=== PATIENT | female | born 1975 | race American Indian/Alaskan Native ===

== ENCOUNTER 2021-02-06 02:00 | Inpatient (IN) | payer OTHER ==
[~2021-02-06] VITALS: Ht 162.6 cm; Wt 81.7 kg
[2021-02-06 02:56] LABS: Source, Urine Clean Catch
[2021-02-06 02:57] LABS: Blood, Urine 2+ (Neg); Glucose Qualitative, Urine Neg (Neg); Ketones, Urine 2+ (Neg); Leukocyte Esterase, Urine 1+ (Neg); Nitrite, Urine Pos (Neg); Protein, Urine 2+ (Neg); Specific Gravity, Urine 1.025 (1.003-1.022); Urobilinogen, Urine 4+ (Normal)
[2021-02-06 03:04] LABS: BASOPHILS ABSOLUTE AUTO 0.03 K/mm3 (0.00-0.23); BASOPHILS PERCENT AUTO 0 % (0-2); EOSINOPHILS ABSOLUTE AUTO 0.04 K/mm3 (0.00-0.68); EOSINOPHILS PERCENT AUTO 0 % (0-6); Hematocrit 41.4 % (33.0-51.0); Hemoglobin 13.8 g/dL (11.5-16.0); IMMATURE GRAN ABSOLUTE AUTO 0.11 K/mm3 (0.00-0.10); IMMATURE GRAN PERCENT AUTO 1 % (0-1); LYMPHOCYTES PERCENT AUTO 7 % (21-46); MONOCYTES ABSOLUTE AUTO 0.51 K/mm3 (0.16-1.47); MONOCYTES PERCENT AUTO 3 % (4-13); Mean Corpuscular HGB 29.1 pg (26.0-34.0); Mean Corpuscular HGB Conc 33.3 g/dL (31.5-36.5); Mean Corpuscular Volume 87 fL (80-100); NEUTROPHILS ABSOLUTE AUTO 13.07 K/mm3 (1.96-9.15); NEUTROPHILS PERCENT AUTO 88 % (41-73); RDW Standard Deviation 40.7 fL (35.1-46.3); Red Blood Cell Count 4.75 M/mm3 (3.80-5.20); White Blood Cell Count 14.86 K/mm3 (4.00-11.30)
[2021-02-06 03:04] LABS: Appearance, Urine Hazy (Clear); Bilirubin, Urine 2+ (Neg); Color, Urine Amber (P-Yellow)
[2021-02-06 03:05] LABS: Amorphous Heavy (0-Heavy); Bacteria Mod /hpf; Mucus Light (0-Heavy); Squamous Epithelial Cells Few /hpf (Few)
[2021-02-06 03:08] LABS: Platelet Count 306 K/mm3 (150-400)
[2021-02-06 03:15] LABS: Alanine Aminotransfer (ALT/SGP 14 U/L (12-78); Albumin, Blood 3.6 g/dL (3.4-5.0); Albumin/Globulin Ratio 0.8 (0.8-1.8); Alk Phos 129 U/L (50-136); Anion Gap 7 mmol/L (6-16); Aspartate Aminotrans (AST/SGOT 16 U/L (12-37); Bilirubin, Total 0.9 mg/dL (0.1-1.0); Blood Urea Nitrogen 15 mg/dL (8-24); Bun/Creatinine Ratio 20.2 (12.0-20.0); CO2, Blood 22 mmol/L (21-32); Calcium, Blood 8.8 mg/dL (8.5-10.1); Chloride, Blood 105 mmol/L (98-108); Creatinine, Blood 0.74 mg/dL (0.40-1.00); Globulin, Blood 4.8 g/dL (2.2-4.0); Glomerular Filtration Rate >60 (60-); Glucose, Blood 134 mg/dL (70-99); Sodium, Blood 134 mmol/L (136-145); Total Protein, Blood 8.4 g/dL (6.4-8.2)
[2021-02-06 08:55] LABS: SARS-Cov-2 (COVID-19) PCR, MMC NEGATIVE (NEGATIVE)
--- NOTE | 2021-02-06 08:56 | NUR ---
THE PATIENT WAS BROUGHT TO DAY SURGERY FROM THE [facility] FOR HER PROCEDURE. History, Chart, Medications and Allergies reviewed before start of procedure.Lungs clear T/O to Auscultation. Pre-Op teaching done. Pt verbalizes understanding.
--- NOTE | 2021-02-06 19:18 | NUR ---
SHIFT SUMMARY PATIENT NEW ADMIT TO UNIT POST OP COLECTOMY WITH NO OSTOMY. MIDLINE ABD INCISION WITH GUERRERO WITH SMALL AREA OF SS DRAINAGE ON DRESSING. CARRASCO PATENT AND DRAINING. IV FLUIDS AND DILAUDID TUBE WASHER RUNNING. PATIENT SLOW TO RESPOND TO QUESTIONS. ANXIOUS AND PAINFUL WHEN AWAKE. RESTLESS IN BED. NPO AT THIS TIME. REPORT GIVEN TO MACHINE OPERATORS RN.
[2021-02-07 05:07] LABS: BASOPHILS ABSOLUTE AUTO 0.02 K/mm3 (0.00-0.23); BASOPHILS PERCENT AUTO 0 % (0-2); EOSINOPHILS PERCENT AUTO 0 % (0-6); Hematocrit 32.4 % (33.0-51.0); Hemoglobin 10.7 g/dL (11.5-16.0); IMMATURE GRAN ABSOLUTE AUTO 0.08 K/mm3 (0.00-0.10); IMMATURE GRAN PERCENT AUTO 0 % (0-1); LYMPHOCYTES ABSOLUTE AUTO 1.21 K/mm3 (0.84-5.20); LYMPHOCYTES PERCENT AUTO 6 % (21-46); MONOCYTES ABSOLUTE AUTO 0.45 K/mm3 (0.16-1.47); MONOCYTES PERCENT AUTO 2 % (4-13); Mean Corpuscular HGB 28.5 pg (26.0-34.0); Mean Corpuscular Volume 86 fL (80-100); Mean Platelet Volume 11.5 fL (9.1-12.4); NEUTROPHILS ABSOLUTE AUTO 17.24 K/mm3 (1.96-9.15); NEUTROPHILS PERCENT AUTO 91 % (41-73); Platelet Count 283 K/mm3 (150-400); RDW Coefficient Variation 13.2 % (11.7-14.2); RDW Standard Deviation 40.9 fL (35.1-46.3); Red Blood Cell Count 3.75 M/mm3 (3.80-5.20)
[2021-02-07 05:30] LABS: Anion Gap 6 mmol/L (6-16); Blood Urea Nitrogen 15 mg/dL (8-24); CO2, Blood 26 mmol/L (21-32); Calcium, Blood 7.7 mg/dL (8.5-10.1); Chloride, Blood 103 mmol/L (98-108); Creatinine, Blood 0.83 mg/dL (0.40-1.00); Glomerular Filtration Rate >60 (60-); Glucose, Blood 136 mg/dL (70-99); Potassium, Blood 3.4 mmol/L (3.5-5.5); Sodium, Blood 135 mmol/L (136-145)
--- NOTE | 2021-02-07 05:39 | NUR ---
SHIFT SUMMARY POD1 SIGMOID COLECTOMY W/O OSTOMY WITH MIDLINE INSCISION AND GUERRERO DRESSING, MOD SS DRAINAGE. PT HAS CONSITENTLY PRESSING HER ASSISTANT NEWS DIRECTOR PUMP, MULTIPLE TIMES T/O SHIFT. SHE WAS DIAPHORETIC INTERMITTENTLY AND RESTLESS. PT ALSO STS "I'M IN PAIN, CAN YOU GIVE ME HEROIN?" I EXPLAINED THAT SHE HAS HER ASSISTANT NEWS DIRECTOR PUMP WITH DILAUDID WHICH WOULD HELP HER WITH PAIN. PT HAS CARRASCO, INTACT, PATENT AND DRAINING. PT VOIDING ADEQUATELY BUT HAS A TEA COLOR URINE. LR INFUSING, ABX HAS BEEN ALSO ADMINISTERED ON HER CENTRAL LINE/FEMORAL. PT ALSO REFUSED TO HAVE THE RIBBON TIER TAKE HER VITALS LAST NIGHT. SHE STATES "THAT'S IS PAINFUL" PERTAINING TO THE BLOOD PRESSURE CUFF. PT WOULD ALSO INTERMITTENTLY SCREAM FOR HELP AND WHEN ASKED, SHE WOULD STATE THAT SHE IS PAINFUL. PT IS NPO, OK FOR SOME ICE CHIPS. PT C/O NAUSEA MEDICATED FOR ZOFRAN TWICE T/O SHIFT. CALL LIGHT WITHIN REACH. WILL PROVIDE REPORT TO ONCOMING NURSE.
--- NOTE | 2021-02-07 07:31 | NUR ---
PT STARTING TO FEEL AGITATED AT AROUND 0610 AM, DIAPHORETIC, HITTING HERSELF, KICKING THE BED, C/O OF PAIN, RESTLESS, AND ATTEMPTING TO PULL LINES AND CORDS. PT STS "I NEED MY HEROIN! CAN I HAVE IT?" EXPLAINED TO THE PT HER CURRENT STATUS, THAT SHE JUST HAD SURGERY AND WE HAVE THE DILAUDID FOR PAIN. PT INSIST TO LEAVE THE HOSPITAL, AND EXPRESSED THAT SHE WILL GET HER HEROIN. ATTEMPTED TO TALK AND CALM PATIENT, BUT REFUSED TO STAY BECAUSE SHE INSIST TO LEAVE. DONIS ARCE AND SHAR ACCOMPANIED THE PATIENT FOR SAFETY WHILE I ADDRESS THE ISSUE TO MY CHARGE NURSE KERRIE. SHARON SY NOTIFIED THE NURSING RN TRANSPLANT ABOUT PATIENT WANTING TO LEAVE VIA AMA. AT 0630AM, NOTIFIED DR. BARILLAS ABOUT THE PATIENT'S SITUATION, AND DR. BARILLAS ORDERED A 2 MD HOLD BECAUSE IT IS NOT SAFE TO DISCHARGE THE PATIENT. WE CALLED THE SECURITY TO ASSIST, SECURITY WAS ON STAND BY OUTSIDE PATIENT'S ROOM. I ALSO CALLED DR. GIORDANO TO INITIATE A 2 MD HOLD. I GOT A VERBAL ORDER FOR 2 MD HOLD AND AN ATIVAN 1-3MG EVERY 3 HRS, PRN. CHARGE NURSES KERRIE AND KARINA INITIATE THE PAPERWORK, TRANSFERRED PATIENT TO ROOM 224 WITH CAM TO MONITOR PATIENT FOR SAFETY. PT REMAINED CALM AFTER ADMINSTERING ATIVAN 2MG. PT DIDN'T HAVE ANY BELONGINGS EXCEPT FOR HER EYE GLASSES WHICH WAS BROUGHT TO HER ROOM IN 224. DR. BARILLAS CAME IN TO SEE PATIENT IN HER ROOM AT AROUND 0720AM. CALL LIGHT WITHIN REACH. SHUCKER PUMP ONGOING FOR DILAUDID. IV ABX INFUSING WITH NS. REPORT WAS GIVEN TO SHARON [place].
--- NOTE | 2021-02-07 10:59 | NUR ---
TACHY HR PATIENT ON CONINUOUS SPO2. OCCASIONAL TACHY FROM 80S UP TO 120. OBTAINED HOSP CONSULT FOR TELE AND MEDICAL MANAGEMENT. EKG AND TELE ORDERED AND OBTAINED. EKG ON FRONT OF CHART. MEDICATED FOR ANXIETY PER EMAR. RESTING IN BED AT THIS TIME.
[2021-02-07 12:47] LABS: U Amphetamine Screen Not Detected; U Barbituate Screen Not Detected; U Benzodiazapine Screen DETECTED; U Buprenorphine Screen Not Detected; U Cannabinoids Screen Not Detected; U Cocaine Screen Not Detected; U Methadone Screen Not Detected; U Methamphetamine Screen DETECTED; U Opiates Screen DETECTED; U Oxycodone Screen Not Detected; U Phencyclidine Screen Not Detected; U Propoxyphene Screen Not Detected
--- NOTE | 2021-02-07 18:08 | NUR ---
SHIFT SUMMARY PATIENT DROWSY THROUGHOUT MOST OF SHIFT. SOMETIMES AWAKE AND ANXIOUS AND NONCOOPERATIVE WITH CARE. ON A TWO MD HOSPITAL HOLD. IV ATIVAN PRN ANXIETY. SYSTEMS INTEGRATION ENGINEER DILAUDID FOR PAIN. ZOFRAN AND PHENERGAN FOR NAUASEA. NPO EXCEPT ICE CHIPS. MIDLINE ABD INCISION WITH GUERRERO WITH SMALL AMOUNT RED DRAINAGE. RIGHT FEMORAL CENTRAL LINE FOR SYSTEMS INTEGRATION ENGINEER AND FLUIDS. LUNA DC'D THIS SHIFT. BOWEL TONES HYPOACTIVE. NOT PASSING GAS. FREQUENTLY ASKS FOR HEROIN AND STATES THAT SHE MUST LEAVE TO GET MONEY, HER PURSE, AND HEROIN.
[2021-02-08 05:54] LABS: Hematocrit 31.7 % (33.0-51.0); Hemoglobin 10.8 g/dL (11.5-16.0); Mean Corpuscular HGB 28.6 pg (26.0-34.0); Mean Corpuscular HGB Conc 34.1 g/dL (31.5-36.5); Mean Corpuscular Volume 84 fL (80-100); Platelet Count 292 K/mm3 (150-400); RDW Coefficient Variation 13.2 % (11.7-14.2); Red Blood Cell Count 3.78 M/mm3 (3.80-5.20); White Blood Cell Count 15.41 K/mm3 (4.00-11.30)
[2021-02-08 06:13] LABS: Anion Gap 7 mmol/L (6-16); Blood Urea Nitrogen 11 mg/dL (8-24); Bun/Creatinine Ratio 13.9 (12.0-20.0); CO2, Blood 24 mmol/L (21-32); Calcium, Blood 7.9 mg/dL (8.5-10.1); Chloride, Blood 103 mmol/L (98-108); Creatinine, Blood 0.79 mg/dL (0.40-1.00); Glomerular Filtration Rate >60 (60-); Glucose, Blood 110 mg/dL (70-99); Potassium, Blood 3.3 mmol/L (3.5-5.5); Sodium, Blood 134 mmol/L (136-145)
--- NOTE | 2021-02-08 07:40 | NUR ---
SUMMARY PT CONFUSED AND IMPULSIVE.BED ALARM CONTINUOUS FOR SAFETY. VOIDING PER BSC DUE TO URGENCY INCONTINENCE.
--- NOTE | 2021-02-08 16:39 | NUR ---
SUMMARY: PT IS POD2 SIG COLECTOMY. VSS, PT DROWSY AND ORIENTED TODAY, NOT RESPONDING TO ALL QUESTIONS. SPENT MOST OF TODAY SLEEPING. PT APPEARS LESS IMPULSIVE, BED ALARM CONTINUES TO BE ON FOR SAFETY AND STAFF DOING FREQUENT ROUNDING, REMOTE MONITOR IN PLACE. WOOD CREW SUPERVISOR INFUSING, ABD BINDER IN PLACE OVER GUERRERO, WNL. TELE STABLE. NO ATIVAN NEEDED, PT DENIES WANTING TO LEAVE THE HOSPITAL. HAD SMALL AMT EMESIS THIS MORNING, ZOFRAN GIVEN. THIS AFTERNOON PT HAS DENIED NAUSEA AND APPEARS COMFORTABLE. PT DAMON CLEAR LIQ TONIGHT, ABD IS SOFT, DENIES PASSING FLATUS. FACESHEET FOR CONSULT SENT TO ER. WILL CTM AND REPORT TO NOC RN.
[2021-02-09 05:38] LABS: Hematocrit 31.5 % (33.0-51.0); Hemoglobin 10.6 g/dL (11.5-16.0); Mean Corpuscular HGB Conc 33.7 g/dL (31.5-36.5); Mean Corpuscular Volume 86 fL (80-100); Mean Platelet Volume 11.2 fL (9.1-12.4); Platelet Count 295 K/mm3 (150-400); RDW Coefficient Variation 13.1 % (11.7-14.2); RDW Standard Deviation 40.6 fL (35.1-46.3); Red Blood Cell Count 3.66 M/mm3 (3.80-5.20); White Blood Cell Count 10.74 K/mm3 (4.00-11.30)
[2021-02-09 05:57] LABS: Anion Gap 7 mmol/L (6-16); Blood Urea Nitrogen 11 mg/dL (8-24); Bun/Creatinine Ratio 13.9 (12.0-20.0); CO2, Blood 24 mmol/L (21-32); Calcium, Blood 7.8 mg/dL (8.5-10.1); Chloride, Blood 103 mmol/L (98-108); Creatinine, Blood 0.79 mg/dL (0.40-1.00); Glomerular Filtration Rate >60 (60-); Glucose, Blood 97 mg/dL (70-99); Potassium, Blood 3.3 mmol/L (3.5-5.5); Sodium, Blood 134 mmol/L (136-145)
--- NOTE | 2021-02-09 07:41 | NUR ---
SUMMARY PT COOPERATIVE TONIGHT IMPROVED SLEEP. PT CONTINUES WITH RADHA AND PACS.I CHECKED WITH PHARMACIST AND IT IS POSSIBILITY OF DILAUDID CLARIFICATION OPERATOR BEING REMOTE CAUSE?DAY RN AND REINFORCING STEEL WORKER WIRE MESH FOR DAYS AGREE TO FOLLOW UP WITH DR BRAND. PT ASYMPTOMATIC.
--- NOTE | 2021-02-09 14:35 | NUR ---
BRADYCARDIA: PT HR DROPS TO 45-53 AT TIMES THIS MORNING. PER CALL OR CONTACT CENTRE MANAGER, ELIZABETH PT HR IS AVERAGING AT 51 AT 0845, TELE ALSO REPORTS OCCASIONAL PAC'S, OTHERWISE NSR. PT DENIES CP AND IS SLEEPING. DR. RANDALL MADE AWARE OF BRADYCARDIA, NO NEW ORDERS AT THIS TIME. WILL CTM.
--- NOTE | 2021-02-09 14:44 | NUR ---
ORDER FOR INVOLUNTARY HOLD TO DC PER DR. BARILLAS. PAPERWORK SIGNED BY DR. BARILLAS AND SENT TO THE ER AT 1210. REMOTE MONITORING NO LONGER IN PLACE. NURSING EMPLOYEE BENEFITS ADMINISTRATOR, LINDA SALAZAR.
--- NOTE | 2021-02-09 15:24 | NUR ---
SUMMARY: PT IS POD3 SIGMOID COLECTOMY. ORIENTED TODAY, STILL DROWSY AND WANTED TO SLEEP THE MAJORITY OF THE DAY. PT IS LESS IMPULSIVE, IS USING THE CALL LIGHT, RESPONDING TO QUESTIONS APPROPRIATELY. SURGICAL SITE WNL. PT REPORTS PASSING GAS, NO BM. ABLE TO TAKE A SMALL AMT OF FULL LIQ, THEN FELL BACK ASLEEP. PT UP TO CHAIR, ENCOURAGING MOBILITY. PT DIDN'T TOLERATE CHAIR LONG DUE TO PAIN AND ASKED TO GET BACK IN BED AFTER ABOUT 10 MINUTES. PER AOC DIRECTOR INTELLIGENCE OFFICER HR AVERAGING 54 AT THIS TIME, VSS. NO ACUTE SAFETY CONCERNS AT THIS TIME, WILL CTM AND REPORT TO NOC RN
--- NOTE | 2021-02-09 18:06 | NUR ---
CARE ASSUMED AT 1700. PT IS ALERT AND ORIENTED HOWEVER IS CONFUSED ABOUT SOME DETAILS ABOUT HER HOSPITAL STAY. FAMILY AT THE BEDSIDE. FEMORAL GROIN SITE DRESSING C/D/I. HOB ELEVATED SLOWLY 1 HOUR AFTER CENTRAL LINE REMOVAL SO PT COULD EAT DINNER. WILL CONTINUE TO MONITOR.
--- NOTE | 2021-02-09 19:30 | NUR ---
SHIFT SUMMARY PT WAS ABLE TO SIT UP FOR DINNER. CENTRAL LINE SITE TO THE R GROIN IS C/D/I. PAIN MANAGED WITH BRASS MOLDER. NO CHANGES TO REPORT SINCE CARE ASSUMED OF PT.
[2021-02-10 04:28] LABS: Hematocrit 33.8 % (33.0-51.0); Hemoglobin 11.6 g/dL (11.5-16.0); Mean Corpuscular HGB 28.8 pg (26.0-34.0); Mean Corpuscular HGB Conc 34.3 g/dL (31.5-36.5); Mean Corpuscular Volume 84 fL (80-100); Mean Platelet Volume 10.9 fL (9.1-12.4); Platelet Count 321 K/mm3 (150-400); RDW Coefficient Variation 12.6 % (11.7-14.2); RDW Standard Deviation 38.5 fL (35.1-46.3); Red Blood Cell Count 4.03 M/mm3 (3.80-5.20); White Blood Cell Count 9.41 K/mm3 (4.00-11.30)
[2021-02-10 04:45] LABS: Anion Gap 6 mmol/L (6-16); Blood Urea Nitrogen 10 mg/dL (8-24); Bun/Creatinine Ratio 14.7 (12.0-20.0); CO2, Blood 23 mmol/L (21-32); Calcium, Blood 8.2 mg/dL (8.5-10.1); Chloride, Blood 103 mmol/L (98-108); Creatinine, Blood 0.68 mg/dL (0.40-1.00); Glomerular Filtration Rate >60 (60-); Glucose, Blood 104 mg/dL (70-99); Potassium, Blood 3.6 mmol/L (3.5-5.5); Sodium, Blood 132 mmol/L (136-145)
--- NOTE | 2021-02-10 07:25 | NUR ---
PT APPEARS TO BE SLEEPING COMFORTABLY AT THIS TIME. DOES NOT APPEAR TO BE IN ANY DISTRESS.
--- NOTE | 2021-02-10 08:16 | NUR ---
SUMMARY PT APPROPRIATE ENTIRE SHIFT.FLATUS +.NO BM YET.NNO C/O NAUSEA.
--- NOTE | 2021-02-10 10:41 | NUR ---
DR BARILLAS IN TO ROUND ON PT THIS AM, PLAN TO DC DILAUDID SERVICE SPECIALIST AND START PT ON PO PAIN MGMT. PER TELE PT HAS HAD NO EVENTS IN PAST 24 HRS, STABLE HR IN 60'S SO WILL DC TELE PER MD ORDER.
--- NOTE | 2021-02-10 13:07 | NUR ---
ELECTRICAL PROJECT ENGINEER DISCONTINUED AT APROX 1215 AND MEDICATED WITH 2 PERCOCET AT THAT TIME. PT APPEARS TO BE RESTING COMFORTABLY AT THIS TIME.
--- NOTE | 2021-02-11 04:27 | NUR ---
SHIFT SUMMARY: PT POD#5 FOR A HEMICOLECTOMY. MIDLINE GUERRERO C/D/I WITH A MODERATE AMOUNT OF SHADOWING. PT TOLERATING CHICKEN BROTH, WATER AND YOGURT THIS SHIFT. DENIES N/V. REPORTS PASSING A LOT OF FLATUS. PT HAD TWO LIQUID BM'S THIS SHIFT AFTER ADMINISTRATION OF MIRALAX PER EMAR. PAIN BEING MANAGED WITH PERCOCET AND IV DILAUDID PER EMAR. PT REPORTS PERCOCET NOT VERY EFFECTIVE. PT MEDICATED WITH ATIVAN ONCE THIS SHIFT D/T ANXIETY R/T INSOMNIA. PT GETTING OUT OF BED TO BATHROOM INDEPENDENTLY. NO CONCERNS AT THIS TIME.
--- NOTE | 2021-02-11 07:46 | NUR ---
PT APPEARS TO BE SLEEPING COMFORTABLY AT THIS TIME. DOES NOT APPEAR TO BE IN ANY DISTRESS. PER NOC RN PT REPORTS THAT PERCOCET IS NOT "HELPING AT ALL", WILL DISCUSS WITH DR BARILLAS DURING AM ROUNDS.
--- NOTE | 2021-02-11 08:29 | NUR ---
DR BARILLAS IN TO SEE PT, PICCO DRESSING REMOVED AND MEDIPORE PLACED OVER MIDLINE INCISION. DR BARILLAS DISCUSSED WITH PT ONLY USING PERCOCET RATHER THAN IV DILAUDID, EDUCATED THAT PAIN MEDICATION WILL NOT TAKE ALL PAIN GO AWAY BUT THAT THE GOAL IS TOLERABLE PAIN LEVEL. MESSAGE LEFT FOR SECTION PLOTTER OPERATOR THIS AM SO WE CAN DISCUSS DISCHARGE PLAN, PT WOULD LIKE TO GO TO [facility], MESSAGE WAS LEFT FOR DARKROOM TECHNICIAN 02/11/21 [id number].
[2021-02-11] MEDS ORDERED: Percocet 5-3251 EACH PO (10:24)
[2021-02-11] MEDS ORDERED: MIRALAX17 GM PO (10:33)
--- NOTE | 2021-02-11 11:28 | NUR ---
DISCHARGE PT DISCHARGED HOME FROM UNIT AT APROX 1128. PT GIVEN WRITTEN AND VERBAL DISCHARGE INSTRUCTIONS AND VERBALIZED UNDERSTANTING. IV REMOVED, TOLERATED WELL. RX FOR PAIN MEDICATION GIVEN TO PT, COPY IN CHART. WHEELCHAIR TO CAR.
== END 2021-02-11 11:24 | disposition home or self-care (01) | DRG 853 ==
LOC: ER 02:00 → SURS 02:01
PROVIDERS: Emergency Medicine; Internal Medicine; Nurse Practitioner Acute Care; ADMIT Surgery
PROC: 06HY33Z Insertion of Infusion Device into Lower Vein, Percutaneous Approach (ICD-10-PCS; 2021-02-06)
PROC: 0DBN0ZZ Excision of Sigmoid Colon, Open Approach (ICD-10-PCS; principal; 2021-02-06 09:30)
DX: A41.9 Sepsis, unspecified organism (principal); K63.1 Perforation of intestine (nontraumatic); K65.9 Peritonitis, unspecified; N39.0 Urinary tract infection, site not specified; I49.3 Ventricular premature depolarization; Z20.822 Contact with and (suspected) exposure to COVID-19; F17.290 Nicotine dependence, other tobacco product, uncomplicated; F11.10 Opioid abuse, uncomplicated; Z98.51 Tubal ligation status
CPT/HCPCS: 36415; 36556; 74177; 80048; 80053; 81001; 83605; 83735; 84703; 85025; 85027; 87077; 87086; 87147; 87186; 88305; 88307; 93005; 93010; 96365-59; 96375-59; 96376-59; 99285-25; A9270; C1751; J0171; J0295; J1170; J1200; J1650; J2060; J2250; J2270; J2405; J2543; J2550; J2704; J3010; J3480; J7050; J7120; Q9967; U0004